=== PATIENT | male | born 1995 | race African-American/Black ===

== ENCOUNTER 2017-12-28 13:39 | Emergency (ER) | payer SELFPAY ==
[~2017-12-28] VITALS: Ht 170.2 cm; Wt 63.6 kg
[2017-12-28 13:43] VITALS: Ht 170.2 cm; Wt 63.6 kg
[2017-12-28] MEDS ORDERED: ROBAXIN-750750 MG PO (15:12)
[2017-12-28] MEDS ORDERED: VOLTAREN75 MG PO (15:12)
[2017-12-28 15:53] VITALS: BP 128/75
== END 2017-12-28 15:53 | disposition home or self-care (01) ==
LOC: D.ER 13:39
DX: S39.012A Strain of muscle, fascia and tendon of lower back, initial encounter (principal); V43.52XA Car driver injured in collision with other type car in traffic accident, initial encounter; Y93.89 Activity, other specified; Y92.410 Unspecified street and highway as the place of occurrence of the external cause; M62.830 Muscle spasm of back; F17.200 Nicotine dependence, unspecified, uncomplicated